=== PATIENT | female | born 1985 | race Hispanic/Latino ===

== ENCOUNTER → 2019-03-05 | Day surgery (SDC) | payer BC ==
[2019-03-02 14:57] LABS: BASOPHILS % 0.4 % (0.0-1.0); EOSINOPHILS # (AUTO) 0.2 (0.0-0.4); EOSINOPHILS % 1.5 % (0.0-6.0); HEMATOCRIT 44.9 % (34.2-44.1); HEMOGLOBIN 14.8 g/dL (12.0-16.0); LYMPHOCYTES # (AUTO) 2.8 (1.0-3.2); LYMPHOCYTES % 25.6 % (18.0-39.1); MEAN CORPUSCULAR HEMOGLOBIN 29.2 pg (28-32); MEAN CORPUSCULAR VOLUME 88.7 fL (81-99); MONOCYTES # (AUTO) 0.7 (0.2-0.8); MONOCYTES % 6.2 % (4.4-11.3); NEUTROPHILS # (AUTO) 7.1 (2.1-6.9); NEUTROPHILS % 65.8 % (38.7-80.0); PLATELET COUNT 345 x10e3/uL (140-360); RED BLOOD COUNT 5.06 x10e6/uL (3.6-5.1); RED CELL DISTRIBUTION WIDTH 14.5 % (11.7-14.4)
[2019-03-02 15:16] LABS: ANION GAP 13.1 mmol/L (8-16); BLOOD UREA NITROGEN 5 mg/dL (7-26); BUN/CREATININE RATIO 8 (6-25); CALCIUM 9.5 mg/dL (8.4-10.2); CARBON DIOXIDE 26 mmol/L (22-29); CHLORIDE 104 mmol/L (98-107); CREATININE, SERUM 0.66 mg/dL (0.57-1.11); EST GLOMERULAR FILTRATION RATE > 60 ML/MIN (60-); GLUCOSE 75 mg/dL (74-118); POTASSIUM 4.1 mmol/L (3.5-5.1); SODIUM 139 mmol/L (136-145)
[~2019-03-05] MED LIST: ACETAMINOPHEN 1000 MG/100 ML IV ONE; BACITRACIN 50,000 UNIT VIAL ONE; BUPIVACAINE 0.25%/EPI 30ML SDV INJ ONE; BUPIVACAINE LIPOSOME/PF 266 MG/20 ML IJ ONE; CEFAZOLIN SOD 1 GM VIAL ONE; CLARITIN10 M2 PO; DEXAMETHASONE SOD PHOS INJ 4 MG/ML VIAL ONE; FENTANYL CITRATE/PF 100MCG/2 ML INJ ONE; GLYCOPYRROLATE INJ 1MG/ 5 ML SYR ONE; KETOROLAC TROMETHAMINE 30 MG/ML VIAL ONE; LIDOCAINE HCL 2% LOCAL INJ 5 ML SDV VIAL INJ ONE; METOCLOPRAMIDE HCL 10 MG/2ML VIAL ONE; MIDAZOLAM HCL 2 MG/2 ML VIAL ONE; NEOSTIGMINE 5 MG/5ML SYR ONE; ONDANSETRON HCL INJ 2MG/ML 2ML 2 MG/ML VIAL ONE; PROPOFOL IV EMULSION 10 MG/ML 20 ML VIAL ONE; ROCURONIUM BROMIDE 10 MG/ML 5ML VIAL ONE; SEVOFLURANE INHAL SOLN 250 ML PEN BTL ONE
[2019-03-05] MEDS: FENTANYL CITRATE/PF 100MCG/2 ML INJ ONE (10:20)
[2019-03-05] MEDS: ONDANSETRON HCL INJ 2MG/ML 2ML 2 MG/ML VIAL ONE (11:02)
[2019-03-05 11:10] VITALS: BP 123/81
--- NOTE | 2019-03-05 11:20 | Operative Report ---
DATE OF PROCEDURE: 03/05/2019 SURGEON: Tyler Correa MD PREOPERATIVE DIAGNOSES: Ventral hernia, obesity. POSTOPERATIVE DIAGNOSES: Ventral hernia, obesity. PROCEDURE PERFORMED: Repair of ventral hernia with Proceed Ventral Patch medium-sized mesh. ANESTHESIA: General. ESTIMATED BLOOD LOSS: Minimal. DRAINS: None. COMPLICATIONS: None. The patient is obese, BMI of 40, female, has been complaining of abdominal pain for several weeks after lifting her children at home. INTRAOPERATIVE FINDINGS: The patient had an umbilical hernia as well as an epigastric hernia that was slightly superior to the umbilicus. The Proceed Ventral Patch medium-sided mesh was placed to cover both the umbilical defect and the epigastric defect. The epigastric defect was then repaired anteriorly with 0 Ethibond. The repair was strong. DESCRIPTION OF PROCEDURE: With the patient lying on the operative table in the supine position and administration of general anesthesia, she was prepped and draped for ventral hernia repair. Because of the large size of the patient, an incision was made along the midline curved to the right and extended inferiorly to the umbilicus. We dissected medial and lateral flaps, detached the umbilicus from the fascia and then dissected the epigastric hernia superior to the umbilicus. We opened the hernia sac which contained basically no bowel, but the peritoneum contained preperitoneal fat, which was then excised with electrocautery. Now that we gained access to the intraabdominal cavity, there did not appear to be any other hernias, we decided to go ahead and place the mesh in the intraperitoneal position. Then we used a PVP medium-sized mesh and deployed in intraabdominal cavity lying flat against the abdominal wall. We took care to make sure there was no interposition of any tissue between the mesh and the abdominal wall. We then secured the mesh to the abdominal wall with three 2-0 Ethibond sutures on each strap and then cut the strap. We then loosely approximated the fascia over the mesh to isolate it from the exterior. The defect which was the epigastric defect was discovered by the intraabdominal mesh was then loosely closed over the mesh with 0 Ethibond sutures. The wound irrigated. Bleeding points cauterized if any. The wound was infiltrated in the fascia with 0.25% Marcaine with epinephrine and then the soft tissues were closed using a combination of 0 chromic and 2-0 chromic catgut. The skin was closed with a combination of 2-0 silk and venu. The skin was also infiltrated with 0.25% Marcaine with epinephrine. An abdominal binder was placed in the abdominal cavity. The patient tolerated the procedure well and taken to recovery room in stable condition. MD BETZY Hernandez/MARY ANNE /[id number]
--- NOTE | 2019-03-19 09:55 | Operative Report ---
DATE OF PROCEDURE: 03/05/2019 SURGEON: Tyler Correa MD ADDENDUM: SMOKEHOUSE OPERATOR: Hitesh Grier, licensed surgical pathologist. Tyler Correa MD PJR/MODL /[id number]
== END | disposition home or self-care (01) ==
LOC: OR 05:34
PROVIDERS: ATTEND Surgery
DX: K43.9 Ventral hernia without obstruction or gangrene (principal); K42.9 Umbilical hernia without obstruction or gangrene; Z01.812 Encounter for preprocedural laboratory examination; Z87.440 Personal history of urinary (tract) infections; I10 Essential (primary) hypertension; E11.9 Type 2 diabetes mellitus without complications; E78.00 Pure hypercholesterolemia, unspecified; I25.2 Old myocardial infarction; E66.9 Obesity, unspecified; Z68.41 Body mass index [BMI] 40.0-44.9, adult
CPT/HCPCS: 36415; 80048; 81025; 85025; C1781; J0690; J1100; J1885; J2001; J2250; J2405; J2765; J3010